=== PATIENT | male | born 1950 | race Caucasian/White ===

== ENCOUNTER 2024-10-31 18:28 | Emergency (ER) | payer OTHER ==
[~2024-10-31] VITALS: Ht 175.3 cm; Wt 68.0 kg
[2024-10-31] MEDS ORDERED: ZESTRIL5 MG PO (18:38)
[2024-10-31] MEDS ORDERED: DICLOFENAC SODI75 MG PO (19:40)
[2024-10-31] MEDS ORDERED: KETOROLAC TROMETHAMINE 30 MG VIAL IV ONE (19:45)
== END 2024-10-31 20:34 | disposition home or self-care (01) ==
LOC: ER 18:28
DX: S50.312A Abrasion of left elbow, initial encounter (principal); X58.XXXA Exposure to other specified factors, initial encounter; Y93.89 Activity, other specified; Y92.89 Other specified places as the place of occurrence of the external cause; Y99.8 Other external cause status; M25.552 Pain in left hip; I10 Essential (primary) hypertension
CPT/HCPCS: 73070; 73501; 73521; 96365; 99283; J1885